=== PATIENT | female | born 1995 | race Caucasian/White ===

== ENCOUNTER 2018-09-04 18:38 | Outpatient (CLI) | payer OTHER ==
[2018-09-04 21:39] LABS: Bacteria,Urine 4+ /HPF (Negative); Bilirubin,Urine NEG (Negative); Blood,Urine NEG (Negative); Color,Urine Amber (Yellow); Mucus,Urine 1+ /HPF
--- NOTE | 2018-09-04 22:25 | Ultrasound Report ---
PROCEDURE: US OB BPP WO NON-STRESS TECHNIQUE: Sonographic evaluation for breathing, movement, tone, and amniotic flui d volume was performed. HISTORY: BPP COMPARISONS: None . FINDINGS: FETUS heart rate is 144 bpm Amniotic fluid volume Normal-score 2. At least one vertical pocket >2 cm or more in vertical axis . breathing: Normal-score 2 . movement: Normal-score 2 . tone: Normal-score 2 . Score: 8 of 8 . IMPRESSION: Normal biophysical profile . This document is electronically signed by Riley Casiano MD., September 04 2018 10:22:53 PM ET
--- NOTE | 2018-09-04 22:26 | Ultrasound Report ---
PROCEDURE: US OB LIMITED TECHNIQUE: Real-time limited sonographic examination was performed for evaluation of amniotic fluid volume for each fetus with image documentation (1 or more fetuses). HISTORY: HEATHER COMPARISONS: None . FINDINGS: There is a single intrauterine gestation with cephalic presentation. Amniotic fluid index is 10 cm. F etal heart rate is 144 bpm. IMPRESSION: Normal amniotic fluid index This document is electronically signed by Riley Casiano MD., September 04 2018 10:24:44 PM ET
[2018-09-04] MEDS ORDERED: LACTATED RINGERS 1,000 ML IV ONE (22:58)
[2018-09-04] MEDS ORDERED: ROCEPHIN/NS 1 GM/50 ML 1 GM/50 ML BAG IV SCH (23:45)
[2018-09-05 00:06] VITALS: BP 110/64
--- NOTE | 2018-09-05 09:22 | Progress Note ---
<JULES BROWN - Last Filed: 09/05/18 09:53> Assessment and Plan A: at 37 weeks gestation. UTI. Not in active labor. Normal BPP and HEATHER. P: Patient received IV hydration and IV Rocephin 1 gram. Nurse called and stated patient's pulse is now in 80s and 90s and nurse states maternal heart rate is no longer elevated and patient remains afebrile without back pain or flank pain. Patient discharged home with Rx for Macrobid 100 mg po BID (called to [facility]). UTI warning signs, signs of labor, and daily movement counting discussed with patient prior to discharge. Upon review of chart this AM, vital signs noted on chart are not what nurse stated they were when she called me prior to patient discharge. Called patient and left message on her voice mail to call me back right away. Request patient return to L&D triage as soon as possible to clarify maternal heart rate. Subjective - Subjective Date of service: 09/04/18 Principal diagnosis: at 37 weeks gestation; rule out labor Interval history: 23 year old at 37 weeks gestation present to rule out labor. Patient reports active movement. Patient denies leaking of fluid or vaginal bleeding. She states she has been having mild irregular contractions for a few days. Patient denies fever, chills, malaise, back pain or flank pain, urinary frequency or dysuria, cough, sore throat, vaginal discharge, or any other s ymptoms. Patient reports: movement normal, contractions, no loss of fluid, no vaginal bleeding Objective - Vital Signs Vital Signs: Vital Signs - 12hr 09/04/18 09/04/18 09/04/18 21:26 21:31 21:36 Temperature Pulse Rate 94 H 101 H 109 H Respiratory Rate Blood Pressure Blood Pressure [Left] O2 Sat by Pulse 100 100 100 Oximetry 09/04/18 09/04/18 09/04/18 21:41 21:46 21:51 Temperature Pulse Rate 103 H 94 H 94 H Respiratory Rate Blood Pressure Blood Pressure [Left] O2 Sat by Pulse 100 100 100 Oximetry 09/04/18 09/04/18 09/04/18 21:56 22:01 22:06 Temperature Pulse Rate 95 H 108 H 89 Respiratory Rate Blood Pressure Blood Pressure [Left] O2 Sat by Pulse 100 100 98 Oximetry 09/04/18 09/04/18 09/04/18 22:11 22:16 22:21 Temperature Pulse Rate 102 H 110 H 101 H Respiratory Rate Blood Pressure Blood Pressure [Left] O2 Sat by Pulse 98 98 99 Oximetry 09/04/18 09/04/18 09/04/18 22:26 22:31 22:36 Temperature Pulse Rate 94 H 110 H 95 H Respiratory Rate Blood Pressure Blood Pressure [Left] O2 Sat by Pulse 99 99 100 Oximetry 09/04/18 09/04/18 09/04/18 22:41 22:46 22:51 Temperature Pulse Rate 100 H 95 H 98 H Respiratory Rate Blood Pressure Blood Pressure [Left] O2 Sat by Pulse 99 100 99 Oximetry 09/04/18 09/04/18 09/04/18 22:56 23:01 23:03 Temperature Pulse Rate 107 H 105 H 98 H Respiratory Rate Blood Pressure 101/61 Blood Pressure [Left] O2 Sat by Pulse 98 99 Oximetry 09/04/18 09/04/18 09/04/18 23:06 23:11 23:16 Temperature Pulse Rate 101 H 105 H 97 H Respiratory Rate Blood Pressure Blood Pressure [Left] O2 Sat by Pulse 98 98 99 Oximetry 09/04/18 09/04/18 09/04/18 23:21 23:26 23:30 Temperature 98.3 F Pulse Rate 102 H 99 H 97 H Respiratory 18 Rate Blood Pressure 108/60 Blood Pressure 108/60 [Left] O2 Sat by Pulse 98 99 Oximetry 09/04/18 09/04/18 09/04/18 23:31 23:36 23:41 Temperature Pulse Rate 91 H 103 H 95 H Respiratory Rate Blood Pressure Blood Pressure [Left] O2 Sat by Pulse 99 99 99 Oximetry 09/04/18 09/04/18 09/05/18 23:46 23:51 00:05 Temperature Pulse Rate 98 H 124 H 104 H Respiratory Rate Blood Pressure 110/64 Blood Pressure [Left] O2 Sat by Pulse 99 98 99 Oximetry 09/05/18 09/05/18 09/05/18 00:10 00:15 00:20 Temperature Pulse Rate 96 H 89 90 Respiratory Rate Blood Pressure Blood Pressure [Left] O2 Sat by Pulse 98 98 98 Oximetry 09/05/18 09/05/18 09/05/18 00:25 00:30 00:35 Temperature Pulse Rate 98 H 109 H 97 H Respiratory Rate Blood Pressure Blood Pressure [Left] O2 Sat by Pulse 98 97 97 Oximetry 09/05/18 09/05/18 09/05/18 00:40 00:45 00:50 Temperature Pulse Rate 97 H 95 H 89 Respiratory Rate Blood Pressure Blood Pressure [Left] O2 Sat by Pulse 97 98 98 Oximetry 09/05/18 09/05/18 09/05/18 00:55 01:00 01:05 Temperature Pulse Rate 100 H 100 H 101 H Respiratory Rate Blood Pressure Blood Pressure [Left] O2 Sat by Pulse 98 98 98 Oximetry 09/05/18 09/05/18 09/05/18 01:10 01:15 01:19 Temperature Pulse Rate 131 H 92 H 154 H Respiratory Rate Blood Pressure Blood Pressure [Left] O2 Sat by Pulse 99 99 80 L Oximetry - Exam Narrative Exam: BPP 8/8. HEATHER 10 cm. Temp. 98.3. Urinalysis shows moderate leukocyte esterase, 4+ bacteria. Negative CVAT bilaterally. Abdomen: Present: normal appearance, soft. Absent: distention, tenderness, guarding, rigidity Uterus: Present: normal, fundal height above umbilicus FHR: category 1 Uterine Contraction Monitor Mode: External Cervical Dilatation: 2 Cervical Effacement Percentage: 30 station: -1 Uterine Contraction Pattern: Irregular Uterine Contraction Intensity: Mild Extremities: normal - Labs Labs: Abnormal Labs 09/04/18 Unknown Ur Specific Mckean 1.032 H Urine WBC (Auto) 29.0 H U Epithel Cells (Auto) 43.0 H Laboratory Results - last 24 hr 09/04/18 Unknown Urine Color Lashonda Urine Turbidity Cloudy Urine pH 6.0 Ur Specific Mckean 1.032 H Urine Protein 30 mg/dl Urine Glucose (UA) Neg Urine Ketones Neg Urine Blood Neg Urine Nitrite Neg Urine Bilirubin Neg Urine Urobilinogen 4.0 Ur Leukocyte Esterase Mod Urine WBC (Auto) 29.0 H Urine RBC (Auto) 8.0 U Epithel Cells (Auto) 43.0 H Urine Bacteria (Auto) 4+ Ur Transition Epith Cell 1 Urine Mucus 1+ <LYNDA DIANA - Last Filed: 09/05/18 13:07> Assessment and Plan After reviewing chart with nurse bd special education teacher, Jules, learned that RN that recorded HR 154 is no longer on shift and therefore patient is returning to hospital to record correct heart rate and oxygen saturation so that record is accurate. Also after review of chart UA reveals patient treated for UTI and clean catch urine sample was contaminated. Objective - Vital Signs Vital Signs: Vital Signs - 12hr 09/05/18 09/05/18 09/05/18 01:05 01:10 01:15 Pulse Rate 101 H 131 H 92 H O2 Sat by Pulse 98 99 99 Oximetry 09/05/18 01:19 Pulse Rate 154 H O2 Sat by Pulse 80 L Oximetry - Labs Labs: Abnormal Labs 09/04/18 Unknown Ur Specific Mckean 1.032 H Urine WBC (Auto) 29.0 H U Epithel Cells (Auto) 43.0 H Laboratory Results - last 24 hr 09/04/18 Unknown Urine Color Lashonda Urine Turbidity Cloudy Urine pH 6.0 Ur Specific Mckean 1.032 H Urine Protein 30 mg/dl Urine Glucose (UA) Neg Urine Ketones Neg Urine Blood Neg Urine Nitrite Neg Urine Bilirubin Neg Urine Urobilinogen 4.0 Ur Leukocyte Esterase Mod Urine WBC (Auto) 29.0 H Urine RBC (Auto) 8.0 U Epithel Cells (Auto) 43.0 H Urine Bacteria (Auto) 4+ Ur Transition Epith Cell 1 Urine Mucus 1+
--- NOTE | 2018-09-05 16:31 | Event Note ---
Patient represented to recheck vitals. HR 100s, Temp 99,O2 sat 99 WBC 5, H/H 01/16. Patient is asymptomatic and states she has a sick infant at home. She denies chest pain, SOB, cough or dysuria. She was given Rocephin 1gIV yesterday by MICHA Dawkins. She reports good movement, no loss of fluid or vaginal bleeding. NST Category I FHT. Plan: Patient instructed to take iron supplementation to treat anemia. F/U outpatient clinic on Thursday. Discharged home in stable condition.
== END 2018-09-05 01:35 | disposition home or self-care (01) ==
LOC: TRG 18:38
PROVIDERS: ATTEND Obstetrics & Gynecology
DX: O62.9 Abnormality of forces of labor, unspecified (principal); Z3A.37 37 weeks gestation of pregnancy
CPT/HCPCS: 76815; 76819; 81001; 96361; 96365; 96366; J0696; J7120

== ENCOUNTER 2018-09-05 14:41 | Outpatient (CLI) | payer OTHER ==
[2018-09-05] MEDS ORDERED: TYLENOL PO ONE (15:41)
[2018-09-05 15:43] LABS: Basophils # (Auto) 0.1 K/mm3 (0.0-0.1); Basophils % (Auto) 1.1 % (0.0-1.8); Eosinophils % (Auto) 0.7 % (0.0-4.3); Hematocrit 25.3 % (30.3-42.9); Lymphocytes # (Auto) 0.9 K/mm3 (1.2-5.4); Lymphocytes % (Auto) 14.2 % (13.4-35.0); Mean Corpuscular HGB Conc 32 % (30-34); Mean Corpuscular Volume 73 fl (79-97); Monocytes # (Auto) 0.5 K/mm3 (0.0-0.8); Monocytes % (Auto) 8.2 % (0.0-7.3); Platelet Count 304 K/mm3 (140-440); Red Blood Count 3.46 M/mm3 (3.65-5.03); Red Cell Distribution Width 18.4 % (13.2-15.2)
[2018-09-05 16:17] VITALS: BP 96/62
== END 2018-09-05 16:33 | disposition home or self-care (01) ==
LOC: TRG 14:41
PROVIDERS: ATTEND Obstetrics & Gynecology
DX: O47.03 False labor before 37 completed weeks of gestation, third trimester (principal); Z3A.36 36 weeks gestation of pregnancy
CPT/HCPCS: 36415; 59025; 85025

== ENCOUNTER 2018-09-22 06:51 | Inpatient (IN) | payer MEDICAID, OTHER ==
[2018-09-22] MEDS ORDERED: LACTATED RINGERS 1,000 ML IV SCH (08:00)
[2018-09-22] MEDS ORDERED: XYLOCAINE 2% INFILTRATI NR (08:00)
[2018-09-22] MEDS ORDERED: PITOCin/NS 20 UNIT/1000ML DRIP 20 UNITS/1,000 ML BAG IV SCH (08:00)
[2018-09-22 08:06] LABS: Basophils # (Auto) 0.1 K/mm3 (0.0-0.1); Basophils % (Auto) 0.8 % (0.0-1.8); Eosinophils % (Auto) 0.3 % (0.0-4.3); Hematocrit 27.3 % (30.3-42.9); Hemoglobin 8.6 gm/dl (10.1-14.3); Lymphocytes # (Auto) 1.4 K/mm3 (1.2-5.4); Lymphocytes % (Auto) 12.5 % (13.4-35.0); Mean Corpuscular HGB Conc 31 % (30-34); Mean Corpuscular Volume 72 fl (79-97); Monocytes # (Auto) 0.8 K/mm3 (0.0-0.8); Monocytes % (Auto) 6.9 % (0.0-7.3); Platelet Count 310 K/mm3 (140-440); Red Blood Count 3.79 M/mm3 (3.65-5.03); Red Cell Distribution Width 18.8 % (13.2-15.2)
[2018-09-22] MEDS ORDERED: MINERAL OIL PO PRN (08:30)
[2018-09-22] MEDS ORDERED: NARCAN 2 MG/2 ML IV PRN (08:30)
[2018-09-22] MEDS ORDERED: BRETHINE SUB-Q PRN (08:30)
[2018-09-22] MEDS ORDERED: SUBLIMAZE IV PRN (08:30)
[2018-09-22] MEDS ORDERED: fentaNYL-BUPIV 2 MCG/ML-0.125% 200 MCG/100 ML BAG EPIDURAL SCH (09:00)
[2018-09-22] MEDS ORDERED: AMPICILLIN/NS 2 GM/100 ML 2 GM/100 ML BAG IV ONE (09:00)
[2018-09-22] MEDS ORDERED: CYTOTEC ONE ×2 (09:06→09:09)
--- NOTE | 2018-09-22 09:47 | History and Physical Report ---
History of Present Illness Date of examination: 09/22/18 Date of admission: 09/22/18 07:32 Chief complaint: Intense Labor Pains and My water broke at 0500 this morning. The fluid was clear. History of present illness: care at [facility], No records available; and office is closed today. States course was uncomplicated. Past History Past Medical History: hematologic disorders (Anemia) Past Surgical History: no surgical history Family/Genetic History: none Social history: no significant social history, single - Obstetrical History Expected Date of Delivery: 09/25/18 Actual Gestation: 39 Week(s) 4 Day(s) : 2 Para: 1 Number of Living Children: 1 #1 Infant Gender: Male year: 2,[birth year] Birthweight: 3.175 kg Method of Delivery: Vaginal Complications: none Medications and Allergies Allergies Allergy/AdvReac Type Severity Reaction Status Date / Time No Known Allergies Allergy Verified 09/04/18 23:10 Active Meds: Active Medications Ephedrine Sulfate (Ephedrine Sulfate) 10 mg IV Q2M PRN PRN Reason: Hypotension Fentanyl (Sublimaze) 100 mcg IV Q2H PRN PRN Reason: Labor Pain Ampicillin Sodium (Polycillin/Ns 2 Gm/100 Ml) 2 gm in 100 mls @ 100 mls/hr IV ONCE ONE; Protocol Stop: 09/22/18 09:59 Lactated Ringer's (Lactated Ringers) 1,000 mls @ 125 mls/hr IV DIRECT DELORIS Oxytocin/Sodium Chloride (Pitocin/Ns 20 Unit/1000ml Drip) 20 units in 1,000 mls @ 125 mls/hr IV DIRECT DELORIS Ampicillin Sodium (Ampicillin/Ns 1 Gm/50 Ml) 1 gm in 50 mls @ 100 mls/hr IV Q4H DELORIS; Protocol Fentanyl/Bupivacaine/Sodium Chlor (Fentanyl-Bupiv 2 Mcg/Ml-0.125%) 200 mcg in 100 mls @ 12 mls/hr EPIDURAL TITR DELORIS; Protocol Lidocaine (Xylocaine 2%) 20 ml INFILTRATI ONCE NR Stop: 09/23/18 07:59 Mineral Oil (Mineral Oil) 30 ml PO QHS PRN PRN Reason: Constipation Naloxone HCl (Narcan 2 Mg/2 Ml) 0.2 mg IV Q5M PRN PRN Reason: Respiratory sedation Terbutaline Sulfate (Brethine) 0.25 mg SUB-Q ONCE PRN PRN Reason: Hyperstimulation/Hypertonicity Review of Systems All systems: negative - Vital Signs Vital signs: Vital Signs Pulse BP 92 H 118/73 09/22/18 08:16 09/22/18 08:16 Temp Pulse Resp BP Pulse Ox 86 116/67 09/22/18 09:27 09/22/18 09:27 - Physical Exam Breasts: Positive: normal Cardiovascular: Regular rate Lungs: Positive: Clear to auscultation, Normal air movement Abdomen: Positive: normal appearance, soft, normal bowel sounds Genitourinary (Female): Positive: normal external genitalia, normal perenium Vagina: Positive: other (leaking clear fluid) Uterus: Positive: enlarged Anus/Rectum: Positive: normal perianal skin - Obstetrical FHR: category 1 Uterine Contraction Monitor Mode: External Cervical Dilatation: 8.5 (leaking a small amount of clear fluid) Cervical Effacement Percentage: 100 station: +1 Uterine Contraction Pattern: Regular Uterine Tone Measurement Phase: Resting Uterine Contraction Intensity: Strong/Firm Results Result Diagrams: 09/22/18 Unknown Abnormal lab results 09/22/18 Range/Units Unknown Hgb 8.6 L (10.1-14.3) gm/dl Hct 27.3 L (30.3-42.9) % MCV 72 L (79-97) fl MCH 23 L (28-32) pg RDW 18.8 H (13.2-15.2) % Lymph % (Auto) 12.5 L (13.4-35.0) % Seg Neutrophils % 79.5 H (40.0-70.0) % Seg Neutrophils # 8.8 H (1.8-7.7) K/mm3 All other labs normal. Assessment and Plan A: IUP at 39 4/7 Weeks Category I Tracing Active Labor SROM GBS Unknown Anemia P: Admit to L&D per Routine orders GBS Prophylaxis Walk-In Labs Anticipate
--- NOTE | 2018-09-22 10:06 | Procedure Note ---
OB Delivery Note - Delivery Date of Delivery: 09/22/18 (0901) Surgeon: HEAVEN LUCAS Estimated blood loss: other (350) - Vaginal Delivery presentation: vertex Delivery position: OA Delivery induction: none Delivery monitor: external FHT, external uterine Route of delivery: Delivery placenta: spontaneous Delivery cord: 3 umbilical vessels Episiotomy: none Delivery laceration: none Anesthesia: none Delivery comments: of a live 7'13 male infant over a intact perineum without pain control with Apgars of 8 and 9 at 0901 on 09/22/2018. directly to maternal abd/chest, skin to skin contact. Spontaneous delivery of placenta complete and intact with Azul side presenting at 0913. 1000U of Cytotec placed per rectum. Bladder emptied with in and out catheter (small amount of urine voided), Manual removal of several large clots from the lower uterine segment. Fundus is firm and midline located 4 below the U. Lochia is scant. Delayed cord clamping and cutti ng; Cord cut by the Father of the Baby. GBS Prophylaxis X 1. - A at 1 minute: 8 at 5 minutes: 9 Infant Gender: Male (7'13)
[2018-09-22] MEDS ORDERED: BENADRYL PO PRN (11:30)
[2018-09-22] MEDS ORDERED: NORCO 5/325 PO PRN (11:30)
[2018-09-22] MEDS ORDERED: SODIUM CHLORIDE FLUSH SYRINGE 10 ML IV PRN (12:00)
[2018-09-22] MEDS ORDERED: INFED IM NR (12:00)
[2018-09-22] MEDS: IBUPROFEN PO SCH ×2 (12:34→23:21)
[2018-09-22] MEDS: PRENATAL VITAMIN PO SCH (12:34)
[2018-09-22] MEDS: FEOSOL PO SCH ×3 (12:34→23:21)
[2018-09-22] MEDS ORDERED: AMPICILLIN/NS 1 GM/50 ML 1 GM/50 ML BAG IV SCH (13:00)
[2018-09-22 21:28] LABS: Hematocrit 23.4 % (30.3-42.9); Hemoglobin 7.3 gm/dl (10.1-14.3)
[2018-09-22] MEDS ORDERED: DULCOLAX PR PRN (22:00)
[2018-09-23] MEDS: IBUPROFEN PO SCH ×3 (05:39→18:43)
[2018-09-23] MEDS: FEOSOL PO SCH ×2 (08:22→18:46)
--- NOTE | 2018-09-23 10:23 | Progress Note ---
Assessment and Plan A: PPD#1 s/p Asymptomatic anemia Stable Desires d/c home P: Routine PP care Ferrous sulfate 325mg PO BID Discharge home today pending Peds Subjective - Subjective Date of service: 09/23/18 Principal diagnosis: PPD#1 s/p Patient reports: appetite normal, voiding normally, pain well controlled, flatus, ambulating normally, no bowel movement [place]: doing well Objective - Vital Signs Latest vital signs: Vital Signs Temp Pulse Resp BP BP Pulse Ox 09/23/18 07:32 97.8 F 83 20 100/62 97 09/22/18 23:53 98.8 F 99 H 18 112/69 96 09/22/18 20:09 98.5 F 99 H 20 117/70 98 09/22/18 11:55 98.6 F 81 20 115/59 98 09/22/18 10:23 96 H 114/62 Intake and Output 09/22/18 09/23/18 09/23/18 23:59 07:59 15:59 Intake Total 120 Output Total 800 Balance -800 120 Intake: Oral 120 Output: Urine 800 Void 800 Other: Total, Intake Amount 120 Total, Output Amount 500 # Voids Void 1 - Exam Breasts: Present: normal, Cardiovascular: Present: Regular rate, Normal S1, Normal S2, No murmurs Lungs: Present: Clear to auscultation, Normal air movement Abdomen: Present: normal appearance, soft, normal bowel sounds. Absent: distention Vulva: both: normal Uterus: Present: firm, fundal height at umbilicus Extremities: Present: normal Deep Tendon Reflex Grade: Normal +2 - Labs Labs: Abnormal lab results 09/22/18 Range/Units 21:15 Hgb 7.3 L (10.1-14.3) gm/dl Hct 23.4 L (30.3-42.9) %
--- NOTE | 2018-09-23 10:24 | Discharge Summary ---
Providers - Providers Date of Admission: 09/22/18 07:32 Date of discharge: 09/23/18 Attending physician: VIVIEN CARRERA MD Primary care physician: VIVIEN CARRERA MD Hospitalization Reason for admission: active labor, IUP at term Delivery: Procedure details: See H&P and delivery note Episiotomy: none Laceration: none Other procedures: none complications: none Discharge diagnosis: IUP at term delivered Condition at discharge: Good Disposition: DC-01 TO HOME OR SELFCARE Plan - Provider Discharge Summary Activity: routine, no sex for 6 weeks, no heavy lifting 4 weeks, no strenuous exercise Diet: routine Instructions: routine Additional instructions: [] Smoking cessation referral if applicable(refer to patient education folder for contact #) [] Refer to [facility] Booklet Call your doctor immediately for: * Fever > 100.5 * Heavy vaginal bleeding ( >1 pad per hour) * Severe persistent headache * Shortness of breath * Reddened, hot, painful area to leg or breast * Drainage or odor from incision. * Keep incision clean and dry at all times and follow doctor's instructions regarding bathing/showering Anemia: Ferrous sulfate 325mg PO BID - Follow up plan Follow up: VIVIEN CARRERA MD [Primary Care Provider] - 6 Weeks
[2018-09-23] MEDS: PRENATAL VITAMIN PO SCH (10:34)
[2018-09-24] MEDS: IBUPROFEN PO SCH ×2 (00:54→06:45)
[2018-09-24] MEDS ORDERED: FEOSOL PO SCH (02:00)
[2018-09-24] MEDS ORDERED: INFED IM NR (10:30)
[2018-09-24] MEDS: PRENATAL VITAMIN PO SCH (10:43)
[2018-09-24 16:16] VITALS: BP 127/67
== END 2018-09-24 15:50 | disposition home or self-care (01) | DRG 807 ==
LOC: TRG 06:51 → LD 07:32 → OB 11:51
PROVIDERS: ADMIT Obstetrics & Gynecology; ATTEND Obstetrics & Gynecology
PROC: 10E0XZZ Delivery of Products of Conception, External Approach (ICD-10-PCS; principal; 2018-09-22)
DX: O99.02 Anemia complicating childbirth (principal); D64.9 Anemia, unspecified; Z3A.39 39 weeks gestation of pregnancy; Z37.0 Single live birth; E66.01 Morbid (severe) obesity due to excess calories
CPT/HCPCS: 36415; 85014; 85018; 85025; 86592; 86706; 86762; 86850; 86900; 86901; 87806; G0378; J0290; J1750; J2590; J7120

== ENCOUNTER 2019-07-12 22:09 | Emergency (ER) | payer SELFPAY ==
[2019-07-12 23:24] VITALS: BP 121/83
[2019-07-13 00:17] LABS: Basophils # (Auto) 0.1 K/mm3 (0.0-0.1); Basophils % (Auto) 0.6 % (0.0-1.8); Eosinophils # (Auto) 0.1 K/mm3 (0.0-0.4); Eosinophils % (Auto) 0.7 % (0.0-4.3); Hematocrit 38.3 % (30.3-42.9); Hemoglobin 12.7 gm/dl (10.1-14.3); Lymphocytes # (Auto) 1.5 K/mm3 (1.2-5.4); Lymphocytes % (Auto) 10.1 % (13.4-35.0); Mean Corpuscular HGB Conc 33 % (30-34); Mean Corpuscular Volume 84 fl (79-97); Monocytes # (Auto) 0.8 K/mm3 (0.0-0.8); Monocytes % (Auto) 5.5 % (0.0-7.3); Platelet Count 334 K/mm3 (140-440); Red Blood Count 4.55 M/mm3 (3.65-5.03); Red Cell Distribution Width 15.6 % (13.2-15.2)
[2019-07-13 00:31] LABS: Alanine Aminotransferase 10 units/L (7-56); Albumin 4.4 g/dL (3.9-5); BUN/Creatinine Ratio 15; Blood Urea Nitrogen 9 mg/dL (7-17); Calcium 9.7 mg/dL (8.4-10.2); Hemolysis Index 6
[2019-07-13] MEDS ORDERED: ONDANSETRON 4 MG ODT TAB PO ONE (01:44)
--- NOTE | 2019-07-13 01:44 | Emergency Department Report ---
ED N/V/D HPI - General Chief complaint: Abdominal Pain Stated complaint: STOMACH PAIN Time Seen by Provider: 07/13/19 00:36 Source: patient Mode of arrival: Ambulatory Limitations: No Limitations - History of Present Illness Initial comments: 24-year-old female presents to the emergency room complaining of diffuse abdominal pain that started at 8 PM. Patient reports that she had nausea and vomiting last vomited at 6 PM. Patient reports she has diarrhea and last loose stool was at 12 AM. Patient reports is not able to hold any fluids down. Patient denies any past medical history except anemia. MD complaint: nausea, vomiting, diarrhea, abdominal pain -: During the night Description of Vomiting: watery Description of Diarrhea: water Associated Abdominal Pain: Yes Location: diffuse Pain Scale: 8 Quality: aching Consistency: intermittent Improves with: none Worsens with: none Associated Symptoms: nausea/vomiting, other (Diarrhea) - Related Data Allergies Allergy/AdvReac Type Severity Reaction Status Date / Time No Known Allergies Allergy Verified 09/04/18 23:10 ED Review of Systems ROS: Stated complaint: STOMACH PAIN Other details as noted in HPI ED Past Medical Hx - Past Medical History Previous Medical History?: Yes Hx Hypertension: No Hx Diabetes: No Hx Deep Vein Thrombosis: No Hx Renal Disease: No Hx Sickle Cell Disease: No Hx Seizures: No Hx Asthma: No Hx HIV: No Additional medical history: anemia - Surgical History Past Surgical History?: No - Social History Smoking Status: Never Smoker Substance Use Type: None ED Physical Exam - General Limitations: No Limitations General appearance: alert, in no apparent distress - Head Head exam: Present: atraumatic, normocephalic - Eye Eye exam: Present: normal appearance - ENT ENT exam: Present: mucous membranes moist - Respiratory Respiratory exam: Present: normal lung sounds bilaterally. Absent: respiratory distress - Cardiovascular Cardiovascular Exam: Present: normal rhythm, tachycardia. Absent: systolic murmur, diastolic murmur, rubs, gallop - GI/Abdominal GI/Abdominal exam: Present: soft, normal bowel sounds. Absent: distended, tenderness, guarding - Neurological Exam Neurological exam: Present: alert, oriented X3, normal gait - Psychiatric Psychiatric exam: Present: normal affect, normal mood - Skin Skin exam: Present: warm, dry, intact, normal color. Absent: rash ED Course Vital Signs 07/12/19 23:20 Temperature 98.3 F Pulse Rate 115 H Respiratory 18 Rate Blood Pressure 121/83 O2 Sat by Pulse 95 Oximetry ED Medical Decision Making - Lab Data Result diagrams: 07/12/19 23:48 07/12/19 23:48 - Medical Decision Making 24-year-old female presents to the emergency room complaining of diffuse abdominal pain that started at 8 PM. Patient reports that she had nausea and vomiting last vomited at 6 PM. Patient reports she has diarrhea and last loose stool was at 12 AM. Patient reports is not able to hold any fluids down. Patient denies any past medical history except anemia. CBC, CMP, UA urine hCG. Urinalysis and urine hCG is pending Signed out to BIJAL Cole [id number] Critical care attestation.: If time is entered above; I have spent that time in minutes in the direct care of this critically ill patient, excluding procedure time. ED Disposition Condition: Stable Instructions: Abdominal Pain (ED) Referrals: PRIMARY CARE, [Primary Care Provider] - 3-5 Days
[2019-07-13] MEDS ORDERED: IBUPROFEN 600 MG TAB PO ONE (02:54)
[2019-07-13 03:27] LABS: Bacteria,Urine 1+ /HPF (Negative); Bilirubin,Urine NEG (Negative); Blood,Urine NEG (Negative); Color,Urine Yellow (Yellow); Mucus,Urine 3+ /HPF; Urobilinogen,Urine < 2.0 mg/dL (<2.0)
[2019-07-13 03:30] LABS: HCG Qualitative,Urine Negative (Negative)
[2019-07-13] MEDS ORDERED: MIDAZOLAM 2 MG/2 ML INJ ONE (08:45)
[2019-07-13] MEDS ORDERED: fentaNYL 100 MCG/2 ML INJ ONE (08:45)
[2019-07-13] MEDS ORDERED: VERAPAMIL 5 MG/2 ML INJ ONE (08:45)
[2019-07-13] MEDS ORDERED: HEPARIN 10,000 UNITS/10 ML VIAL ONE (08:45)
[2019-07-13] MEDS ORDERED: HEPARIN/NS 5000 UNIT/500ML 0 ML IR ONE (08:45)
[2019-07-13] MEDS ORDERED: LIDOCAINE (2%) 20 MG/1 ML VIAL 20 ML MDV INFILTRATI ONE (08:46)
== END 2019-07-13 05:30 | disposition home or self-care (01) ==
LOC: ED 22:09
DX: R10.84 Generalized abdominal pain (principal); R11.2 Nausea with vomiting, unspecified; Z86.2 Personal history of diseases of the blood and blood-forming organs and certain disorders involving the immune mechanism
CPT/HCPCS: 36415; 80053; 81001; 81025; 85025; 99283; J1644; J2250; J3010; Q0162